=== PATIENT | female | born 1985 | race Caucasian/White ===

== ENCOUNTER → 2018-05-16 13:46 | Outpatient (CLI) | payer SELFPAY ==
[2018-05-03 10:34] VITALS: BMI 22.6
[2018-05-03 11:33] VITALS: BMI 22.6
--- NOTE | 2018-05-16 13:49 | US_ITS ---
STUDY: SECOND AND THIRD TRIMESTER OBSTETRICAL ULTRASOUND - LIMITED REASON FOR EXAM: Female, 33 years old. growth with history of placenta previa LMP: Unknown. PRIOR ULTRASOUND: None. TECHNIQUE: Transabdominal and Transvaginal TECHNICAL QUALITY: Adequate. FINDINGS: There is a single intrauterine fetus. The fetus is in a transverse lie with the head on the maternal right side. There is demonstrated cardiac activity with a heart rate of 142 bpm. There is a normal amniotic fluid volume. The largest amniotic fluid pocket measures 5.6 x 2.2 cm. The amniotic fluid index (ELISEO) is 13.6 cm. The placenta is anterior in location and is not low lying. There are Grade 1 placental changes. The cervix measures 4.7 cm in length. BIOMETRY: BPD: 7 cm: 28 weeks, 0 days HC: 26 cm: 28 weeks, 1 days AC: 24 cm: 28 weeks, 2 days FL: 5.3 cm: 28 weeks, 3 days Age by LMP: 29 weeks, 0 days. JACQUELINE by LMP: 08/01/2018. age by current US: 28 weeks, 2 days. JACQUELINE by current US: 08/06/2018. Estimated weight: 1190 grams, +/- 174 grams, 14 percentile. Please note the placenta is measuring 2.4 cm from the os US/OB Limited With Biometrics IMPRESSION: Single live intrauterine at current gestational age of 28 weeks 2 days with estimated date of delivery 08/06/2018. No evidence of placenta previa. Remainder as above. Electronically Signed: Saw Og DO at 15:22 EST Tel , Service support ,
--- OUTSIDE RECORDS SUMMARY | 2018-07-19 01:55 | XMS RPT_ITS ---
:1985 Author Organization [facility] Care Team Providers Name Role Phone Qiana Ruiz Attending Unavailable Qiana Ruiz Attending Unavailable Qiana Ruiz Referring Unavailable Primay Care Physicia, No Primary Care Unavailable Qiana Ruiz Attending Unavailable PROBLEMS PROBLEMS DATE TYPE CONDITION / CODE ATTENDING STATUS SOURCE 05/16/2018 Unknown O44.02 - Complete Marc[place]ony, Active [place] placenta previa [facility] NOS or without Hospital hemorrhage, Repository second trimester / O44.02(ICD-10) 05/17/2018 Unknown O44.00 - Complete Marcanthony, Active [place] placenta previa [facility] NOS or without Hospital hemorrhage, Repository unspecified trimester / O44.00(ICD-10) PROCEDURES PROCEDURES No Procedure Records FoundRESULTS RESULTS 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 REPOSITORY [facility] [address] [place] [address]. [address] [place] [address] OFFICE VISIT Date of Service: 05/16/18 MR#: [id number] Acct: [id number] Name: ETHAN CA Rep #: [id number] : 1985 Provider: Qiana Ruiz MD Age/Sex: 33/F [place] [facility] [place]: Signed Intake Vital Signs05/16/18 Body Mass Index (BMI) 22.6 05/16/18 Height 5 ft 2 in 05/16/18 Weight: 126 lb 6 oz 05/16/18 Body Mass Index (BMI) 23.1 05/16/18 Blood Pressure 92/58 L Intake Visit Reasons: 29 WK OB, placenta previa *ok per SM Chief Complaint: est ob, placenta previa Manager Culinary Required: No Is patient in pain?: No Allergies No Known Allergies Allergy (Verified 05/16/18 14:54) Medications NK 05/03/18 [History Confirmed 05/16/18] Last Menstral Period: 10/21/17 Zika: Zika virus screening: Negative : No PFSH PFSH Surgical History History of wisdom tooth extraction, class II edentulism (Acute) Social History Smoking Status: Never smoker alcohol intake: never substance use type: does not use caffeine: Yes what type of physical activity do you participate in: walking seatbelt use: always do you feel safe at home: Yes additional social history: [employer] Patient stays at home Pregancy History 7 Elective abortions Hx Para 4 Spontaneous abortions 2 Past Pregnancies Del. DatName GA/WeeksOutcome [facility] LocaProviderFOB e ht en ia tn Unknown 2003 [place] [facility] bir[facility] Male [place] [facility] l term Unknown 2005 Emilia live birNSVD Female Birthing brandan [facility] l term HPI 29 WK OB, placenta previa *ok per : Details: ETHAN CA is a 33 year old who presents for routine OB visit. OB Visit JACQUELINE Calculator Estimated Delivery Date 08/01/18 Based on LMP (certain) 10/25/17 Current WG 29w 0d Number 1 Initial Weight: 122 lb Date Weight BP Urine PrFHR FuHt Pres MoCTX DilationFetal StVisit NoProviderComments E ot v te [place] G Effac lucose ed Visit Notes Visit Date: 05/16/18 no vb lof good fm no regular ctx. 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 Qiana Ruiz MD on 05/16/18 Visit Date: 05/03/18 no vb cramping had previa at 16 weeks. Qiana Ruiz MD on 05/03/18 Diagnostics Diagnostics Labs Obstetrics Ultrasound 05/16/18 Details: HIV: Urine Culture: Sequential Screen: NIPT Screen: Results [id number] Office Urine Glucose Negative Last Edit by Marii Fuentes on 05/16/18 15:00 Office Urine Protein Negative Last Edit by Marii Fuentes on 05/16/18 15:00 Assessment AND Plan Problems 1. 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 will plan for transfer of care back to a punchboard filling machine operator Orders Orders: Coding Level of Care Code OB Routine Diagnoses Placenta previa in second trimester O44.02 Trimester: second trimester 05/16/18 1546 <Electronically signed by Qiana Ruiz MD> Date Qiana Ruiz MD Cosign Signature: Date (if applicable) CC: OB LIMITED WITH Observed: 05/16/2018 Status: F Source: [facility] 1:[address] [facility] REPOSITORY [facility] Imaging Services [address] [place] [id number] OB Limited With Biometrics MR#: [id number] Acct: [id number] Name: ETHAN CA Rep #: [id number] : 1985 F 33 From: Saw Og DO PCP: Care Physician, No Primary Status: REG CLI Study: OB Limited With Biometrics Date of Exam: 05/16/18 Exam# [id number] Ordering Dr: Qiana Ruiz MD STUDY: SECOND AND THIRD TRIMESTER OBSTETRICAL ULTRASOUND - LIMITED REASON FOR EXAM: Female, 33 years old. growth with history of placenta previa LMP: Unknown. PRIOR ULTRASOUND: None. TECHNIQUE: Transabdominal and Transvaginal TECHNICAL QUALITY: Adequate. FINDINGS: There is a single intrauterine fetus. The fetus is in a transverse lie with the head on the maternal right side. There is demonstrated cardiac activity with a heart rate of 142 bpm. There is a normal amniotic fluid volume. The largest amniotic fluid pocket measures 5.6 x 2.2 cm. The amniotic fluid index (ELISEO) is 13.6 cm. The placenta is anterior in location and is not low lying. There are Grade 1 placental changes. The cervix measures 4.7 cm in length. BIOMETRY: BPD: 7 cm: 28 weeks, 0 days HC: 26 cm: 28 weeks, 1 days AC: 24 cm: 28 weeks, 2 days FL: 5.3 cm: 28 weeks, 3 days Age by LMP: 29 weeks, 0 days. JACQUELINE by LMP: 08/01/2018. age by current US: 28 weeks, 2 days. JACQUELINE by current US: 08/06/2018. Estimated weight: 1190 grams, +/- 174 grams, 14 percentile. Please note the placenta is measuring 2.4 cm from the os US/OB Limited With Biometrics IMPRESSION: Single live intrauterine at current gestational age of 28 weeks 2 days with estimated date of delivery 08/06/2018. No evidence of placenta previa. Remainder as above. 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 Is patient in pain?: No Allergies No Known Allergies Allergy (Unverified 05/03/18 10:35) Medications NK 05/03/18 [History Confirmed 05/03/18] Last Menstral Period: 10/21/17 Zika: Zika virus screening: Negative : No PFSH PFSH Surgical History History of wisdom tooth extraction, class II edentulism (Acute) Social History Smoking Status: Never smoker alcohol intake: never substance use type: does not use caffeine: Yes what type of physical activity do you participate in: walking seatbelt use: always do you feel safe at home: Yes additional social history: [employer] Patient stays at home Pregancy History 7 Elective abortions Hx Para 4 Spontaneous abortions 2 Past Pregnancies Del. DatName GA/WeeksOutcome [facility]oca[facility]FO[facility] e ht en ia tn Unknown 2003 [place] live birNS[facility] Male [place] on [facility] l term Unknown 2005 Emilia live birNSVD Female Birthing brand[facility] l term HPI 27 WEEK CONSULT - PLACENTA PREVIA: Details: ETHAN CA is a 33 year old who presents for routine OB visit. OB Visit JACQUELINE Calculator Estimated Delivery Date 08/01/18 Based on LMP (certain) 10/25/17 Current WG 27w 1d Number 1 Initial Weight: 122 lb Date Weight BP Urine PrFHR FuHt Pres MoCTX DilationFetal StVisit NoProviderComments E ot v te [place] G Effac lucose ed Visit Notes Visit Date: 05/03/18 no vb cramping had previa at 16 weeks. Qiana Ruiz MD on 05/03/18 Diagnostics Diagnostics Details: HIV: Urine Culture: Sequential Screen: NIPT Screen: ROS Const Denies fever(s) GI Denies abdominal pain, Reports as per HPI Denies vaginal discharge, Denies abnormal vaginal bleeding, Reports as per HPI Exam Const General: healthy appearing, comfortable, no acute distress GI Inspection: normal to inspection Palpation: soft, nontender Assessment AND Plan Problems 1. Placenta previa in second trimester O44.02 referred from punchboard filling machine operator- recommend repeat us to confirm placenta location. Plan discussed vaginal vs c section and discussed 05/29 liklihood of resolution of placenta previa. patient to decide on location of delivery if placenta previa has resolved Coding Level of Care Code OB Routine Diagnoses Placenta previa in second trimester O44.02 Trimester: second trimester 05/03/18 1124 <Electronically signed by Qiana Ruiz MD> Date Qiana Ruiz MD Cosigner Signature: Date (if applicable) CC: ALLERGIES ALLERGIES DATE TYPE / CODE NAME / CODE REACTION SEVERITY SOURCE 05/16/2018 Drug No Known Unknown [facility] Allergy/4160 Allergies/F00 [facility] 78304(SNOMED [id number](RXNOR Repository CT) M) ENCOUNTERS ENCOUNTERS ADMIT/DISCHARGE ACCOUNT ADMITTING ENCOUNTER LOCATION SOURCE NUMBER CLASS 05/16/2018/ [id number] Ambulatory BMSBuilding:B [place] [address] 8 [facility] Repository 05/16/2018 [id number] Ambulatory [place] 8 [facility] ing:US Repository 05/03/2018/ [id number] Ambulatory BMSBuilding:B [place] 9 3 [facility] Repository PAYERS PAYERS ENCOUNTER GUARANTOR PAYER SUBSCRIBER SOURCE 05/16/2018 ETHAN Oliveira Primary ETHAN [id number] Insurance:KARI KIM: [address] [id number] [address]Jfr: GROUPPolicy Number: Repository 0Effective (HP) Date: [address], [place] [address]MT: 05/16/2018 Secondary NOT GIVENUNK [place] Insurance:SELF PAY [facility] Number: Effective Repository Date:2018-05-16 05/16/2018 ETHAN Tee Primary Insurance:[facility] ETHAN L [place] [id number] SR PACKAGE PLANPolicy MULLETDOB: [address], Number: Effective [id number] [address]Zcv: Date:2018-05-03 Repository () 05/16/2018 Secondary NOT GIVENUNK [place] Insurance:SELF PAY [facility] Number: Effective Repository Date:2018-05-03 05/03/2018 ETHAN [id number] Primary ETHAN MULLETDOB: [place] SR Insurance:[facility] [id number] [place] [address]Rlp: GROUPPolicy Number: Repository 0Effective (HP) Date: [address] [place] [id number]: 05/03/2018 Secondary NOT GIVENUNK [place] Insurance:SELF PAY [facility] Number: Effective Repository Date:2018-05-03
== END ==
PROVIDERS: Referring Provider Obstetrics & Gynecology; Visit Provider Obstetrics & Gynecology
DX: O44.00 Complete placenta previa NOS or without hemorrhage, unspecified trimester (principal); Z3A.00 Weeks of gestation of pregnancy not specified
CPT/HCPCS: 76816